=== PATIENT | male | born 1935 | race Caucasian/White ===

== ENCOUNTER 2016-09-01 18:43 | Emergency (ER) | payer MEDICARE, OTHER | END 2016-09-01 22:35 | disposition other institution (70) | LOC: ER 18:43 | DX: R60.0 Localized edema (principal); L03.116 Cellulitis of left lower limb; L03.115 Cellulitis of right lower limb; N28.9 Disorder of kidney and ureter, unspecified; I44.7 Left bundle-branch block, unspecified; I87.2 Venous insufficiency (chronic) (peripheral); I48.91 Unspecified atrial fibrillation; I10 Essential (primary) hypertension; Z95.5 Presence of coronary angioplasty implant and graft; Z85.46 Personal history of malignant neoplasm of prostate; Z79.899 Other long term (current) drug therapy; Z79.82 Long term (current) use of aspirin; Z99.81 Dependence on supplemental oxygen | CPT/HCPCS: 99284; 99285-25 ==

== ENCOUNTER 2016-09-01 18:43 | Inpatient (IN) | payer MEDICARE, OTHER ==
[~2016-09-01] VITALS: Ht 190.5 cm; Wt 114.0 kg
[2016-09-01 19:25] LABS: EOS # 0.2 10_X3_uL (0.0-0.5); EOS % 5.7 % (0.8-7.0); GRAN # 2.6 10_X3_uL (1.8-5.4); GRAN % 63.1 % (34.0-67.9); HEMATOCRIT 32.2 % (40-51); HEMOGLOBIN 10.2 g/dL (13.7-17.5); LYMPH # 0.5 10_X3_uL (1.3-3.6); LYMPH % 13.1 % (21.8-53.1); MEAN CORPUSCULAR HEMOGLOBIN 30.2 pg (27.0-33.0); MEAN CORPUSCULAR HGB CONC 31.7 g/dL (32.0-36.0); MEAN CORPUSCULAR VOLUME 95.3 fL (79-92); MEAN PLATELET VOLUME 9.2 fl (7.5-11.5); MONO # 0.7 10_X3_uL (0.3-0.8); MONO % 17.1 % (5.3-12.2); PLATELET COUNT 227 x10_3/uL (163-337); RED BLOOD COUNT 3.38 x10_6/uL (4.6-6.1); RED CELL DISTRIBUTION WIDTH 14.4 % (11.6-14.4)
[2016-09-01 19:44] LABS: ALBUMIN 3.6 gm/dL (3.4-5.0); BILIRUBIN,TOTAL 0.38 mg/dL (0.0-1.0); CALCIUM 8.9 mg/dL (8.7-10.7); CREATININE 1.7 mg/dL (0.6-1.3); POTASSIUM 3.7 mmol/L (3.5-5.1); TOTAL PROTEIN 6.8 gm/dL (6.4-8.2)
[2016-09-02 08:31] LABS: BASO % 0.8 % (0.2-1.2); EOS # 0.3 10_X3_uL (0.0-0.5); EOS % 6.4 % (0.8-7.0); GRAN # 2.5 10_X3_uL (1.8-5.4); HEMATOCRIT 31.3 % (40-51); HEMOGLOBIN 10.1 g/dL (13.7-17.5); LYMPH # 0.4 10_X3_uL (1.3-3.6); LYMPH % 10.8 % (21.8-53.1); MEAN CORPUSCULAR HEMOGLOBIN 30.4 pg (27.0-33.0); MEAN CORPUSCULAR HGB CONC 32.3 g/dL (32.0-36.0); MEAN CORPUSCULAR VOLUME 94.3 fL (79-92); MEAN PLATELET VOLUME 10.2 fl (7.5-11.5); MONO # 0.7 10_X3_uL (0.3-0.8); PLATELET COUNT 197 x10_3/uL (163-337); RED BLOOD COUNT 3.32 x10_6/uL (4.6-6.1); RED CELL DISTRIBUTION WIDTH 14.5 % (11.6-14.4); WHITE BLOOD COUNT 3.9 x10_3/uL (4.2-9.1)
[2016-09-03 07:37] LABS: HEMATOCRIT 33.4 % (40-51); HEMOGLOBIN 10.2 g/dL (13.7-17.5); MEAN CORPUSCULAR HEMOGLOBIN 29.2 pg (27.0-33.0); MEAN CORPUSCULAR HGB CONC 30.5 g/dL (32.0-36.0); MEAN CORPUSCULAR VOLUME 95.7 fL (79-92); MEAN PLATELET VOLUME 9.6 fl (7.5-11.5); RED BLOOD COUNT 3.49 x10_6/uL (4.6-6.1); RED CELL DISTRIBUTION WIDTH 14.5 % (11.6-14.4); WHITE BLOOD COUNT 3.7 x10_3/uL (4.2-9.1)
[2016-09-03 08:45] LABS: ALBUMIN 3.6 gm/dL (3.4-5.0); BILIRUBIN,TOTAL 0.32 mg/dL (0.0-1.0); CALCIUM 9.3 mg/dL (8.7-10.7); CREATININE 1.5 mg/dL (0.6-1.3); TOTAL PROTEIN 6.3 gm/dL (6.4-8.2)
[2016-09-04 06:37] LABS: HEMATOCRIT 32.8 % (40-51); HEMOGLOBIN 10.2 g/dL (13.7-17.5); MEAN CORPUSCULAR HEMOGLOBIN 30.1 pg (27.0-33.0); MEAN CORPUSCULAR HGB CONC 31.1 g/dL (32.0-36.0); MEAN CORPUSCULAR VOLUME 96.8 fL (79-92); MEAN PLATELET VOLUME 9.7 fl (7.5-11.5); RED BLOOD COUNT 3.39 x10_6/uL (4.6-6.1); RED CELL DISTRIBUTION WIDTH 14.5 % (11.6-14.4); WHITE BLOOD COUNT 4.4 x10_3/uL (4.2-9.1)
[2016-09-04 06:42] LABS: CREATININE 1.6 mg/dL (0.6-1.3); POTASSIUM 3.8 mmol/L (3.5-5.1)
== END 2016-09-05 13:30 | disposition home or self-care (01) | DRG 603 ==
LOC: ER 18:43 → MS 22:35
PROVIDERS: Emergency Medicine; Family Medicine; ADMIT Family Medicine
DX: L03.116 Cellulitis of left lower limb (principal); J44.1 Chronic obstructive pulmonary disease with (acute) exacerbation; J44.0 Chronic obstructive pulmonary disease with (acute) lower respiratory infection; J98.11 Atelectasis; L03.115 Cellulitis of right lower limb; J20.9 Acute bronchitis, unspecified; N28.9 Disorder of kidney and ureter, unspecified; R60.0 Localized edema; I10 Essential (primary) hypertension; Z85.46 Personal history of malignant neoplasm of prostate; S22.49XS Multiple fractures of ribs, unspecified side, sequela; I48.91 Unspecified atrial fibrillation; M79.1 Myalgia; R06.02 Shortness of breath; Z79.82 Long term (current) use of aspirin; Z79.899 Other long term (current) drug therapy; Z83.3 Family history of diabetes mellitus; Z82.49 Family history of ischemic heart disease and other diseases of the circulatory system; Z80.9 Family history of malignant neoplasm, unspecified; Z99.81 Dependence on supplemental oxygen; Z95.5 Presence of coronary angioplasty implant and graft
CPT/HCPCS: 36415; 71010; 80048; 80053; 82550; 82553; 83880; 85025; 87040; 93005; 93041; 94640; 94664; 96365; 96375; 99070; 99284; 99285-25